=== PATIENT | female | born 2000 | race Caucasian/White ===

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

== ENCOUNTER 2024-02-01 10:20 | Outpatient (CLI) | payer OTHER, SELFPAY ==
--- NOTE | ~2024-02-01 | XR_ITS ---
EXAMINATION: XR chest 2V 02/01/2024 10:55 INDICATION: Shortness of breath PROCEDURE: 2 view chest COMPARISON: No prior studies for comparison. FINDINGS: The lungs are clear. The cardiomediastinal silhouette is within normal limits. There are no pleural effusions. There is no pneumothorax suspected. IMPRESSION: 1: NO ACUTE CARDIOPULMONARY DISEASE. Reviewed, dictated and finalized at location B.
[2024-02-01 10:56] LABS: Hematocrit 41.4 % (37.0-47.0); Mean Corpuscular HGB Conc 31.4 g/dl (32-36); Mean Corpuscular Volume 92.2 fl (80-100); Mean Platelet Volume 10.2 fl (7.4-10.4); Platelet Count Result 244 k/mm3 (150-375); Red Blood Count 4.49 M/mm3 (4.2-5.4); White Blood Count 4.2 K/mm3 (4.5-10.0)
[2024-02-01 11:13] LABS: Rheumatoid Factor < 12.0 IU/ML (<12)
[2024-02-01 11:19] LABS: Alanine Aminotransferase 12 U/L (6-35); Albumin Level 4.4 g/dL (3.5-5.1); Alkaline Phosphatase 39 U/L (38-126); Anion Gap 7 mmol/L (4-12); Aspartate Amino Transferase 22 U/L (14-36); Bilirubin,Total 0.6 mg/dL (0.2-1.3); Blood Urea Nitrogen 13 mg/dL (7-17); Calcium 9.6 mg/dL (8.4-10.2); Carbon Dioxide 28 mmol/L (22-30); Chloride 105 mmol/L (98-107); Estimated Glomerular Filt Rate > 60; Glucose 84 mg/dL (65-110); Potassium 4.1 mmol/L (3.4-5.0); Sodium 140 mmol/L (137-145)
[2024-02-02 08:23] LABS: ANA Cascade Screen NEGATIVE (NEGATIVE)
== END 2024-02-01 10:21 | disposition home or self-care (01) ==
PROVIDERS: PCP Family Medicine; Visit Provider Nurse Practitioner Adult Health
DX: L50.9 Urticaria, unspecified (principal); Z13.29 Encounter for screening for other suspected endocrine disorder; R06.02 Shortness of breath
CPT/HCPCS: 36415; 71046; 80053; 84443; 85027; 86038; 86225; 86235; 86364; 86430

== ENCOUNTER 2024-10-01 08:09 | Emergency (ER) | payer OTHER, SELFPAY ==
--- NOTE | 2024-10-01 08:18 | ED.URI ---
HPI - URI/Sore Throat General Chief Complaint: Upper Respiratory Infection Stated Complaint: Edilbertoess patient presents to the [facility] with complaints continued sore throat, ulcers to right tonsil, fevers, headaches, and fatigue that began several weeks ago. 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 Patient reports using Tylenol consistently. Denies cough, dizziness, shortness of breath, difficulty swallowing, nausea, vomiting, or diarrhea Related Data Home Medications ?Medication ?Instructions ?Recorded ?Confirmed ?Last Taken ?Type venlafaxine 150 mg 150 mg PO DAILY 02/01/24 02/01/24 Unknown History capsule,extended release 24 hr Allergies Allergy/AdvReac Type Severity Reaction Status Date / Time hydrocodone Allergy Intermediate Rash Verified 10/01/24 08:35 Review of Systems Constitutional: Constitutional: Reports as per HPI, Denies chills, Reports fatigue, Reports fever(s) and Denies weakness Eyes: Eyes: Reports no additional eye complaints ENT: Reports as per HPI, Denies vertigo, Denies dizziness, Reports nasal congestion and Reports sore throat Comments: ulcers right tonsil Cardiovascular: Cardiovascular: Reports no additional cardiovascular complaints Respiratory: Respiratory: Reports as per HPI, Denies chest congestion and Denies cough Gastrointestinal: Gastrointestinal: Reports no additional gastrointestinal complaints Genitourinary: Genitourinary: Reports no additional female genitourinary complaints Musculoskeletal: Musculoskeletal: Reports no additional musculoskeletal complaints Integumentary/Breasts: Skin/Breast: Reports as per HPI and Denies rash Neurologic: Reports as per HPI, Denies vertigo, Denies dizziness and Reports headache(s) Psychiatric: Psychiatric: Reports no additional psychiatric complaints Endocrine: Endocrine: Reports no additional endocrine complaints Hematologic/Lymphatic: Hematologic/Lymphatic: Reports no additional hematologic/lymphatic complaints Allergic/Immunologic: Allergic/Immunologic: Reports as per HPI Comments: seasonal allergies, nasal drainage PMFSH Past Medical History Medical History Anxiety Chronic constipation Shortness of breath Screening for thyroid disorder Hives Surgical History Surgical History History of skin graft ~2003 History of skin graft History of hernia repair Family History Family History Other Depression Diabetes mellitus Hypertension Social History Social History Smoking status: Unknown if ever smoked Second hand tobacco smoke exposure: Yes Alcohol intake: current Substance use: never Do You Feel Safe in your Home?: Yes Lack of Transportation: No Lack of Food: Never True Current Housing: I Have Housing Concerned About Future Housing: No Difficulty Paying Gas/Electric Bills: No Difficulty Paying for Meds: No Currently Unemployed: No Education: Associate Degree Difficulty w/ Childcare or Family Care: No Exam Const: General: ill appearing Orientation/consciousness: patient oriented x3 Limitations: no limitations Other: obviously fatigued HENMT: Head: normal to inspection Ears: external ears normal and TM's normal bilaterally Face/Nose/Sinus: Normal external nose present and Normal nares present Face and sinus: normal facial exam and sinuses nontender Mouth: Yes moist mucous membranes and Yes Abnormal oral and palatal mucosa present erythematous, edematous and ulceration (right tonsil) Throat: posterior oropharynx abnormal (moderate erythema and mild edema noted- no peritonsillar abscess noted. ) Neck: Neck: lymphadenopathy (bilateral anterior cervical) Chest: Chest palpation & inspection: normal inspection of the chest Resp: Effort & Inspection: normal respiratory effort Auscultation: clear to auscultation bilaterally Cardio: Rate: regular rate Rhythm: regular rhythm Heart sounds: no murmurs Skin: General skin exam: normal color Rashes: no rashes Wounds: no wounds Neuro: General: patient oriented x3 Speech: normal speech Gait exam (Neuro): Normal gait present Psych: Mental Status: mental status grossly normal Affect: normal affect Attitude: cooperative Course Course Level of Care: Express Care Visit MDM - URI/Sore Throat MDM Narrative Medical decision making narrative: strep testing completed in clinic- given length of symptoms, fevers, and exam will place on antibiotics. Discharge instructions reviewed with patient, as well as provided in writing per nursing staff. The instructions also include specific and strict return/GO TO THE ER as well as f/u information. All questions have been answered, and the patient deny any further questions with discharge and discharge plan. Differential Diagnosis Differential diagnosis: Likely upper respiratory infection, otitis media, sinusitis, viral infection, influenza and pharyngitis Medical Records Attestation: I reviewed the patient's medical records. Lab Data Attestation: I reviewed the patient's lab results. Discharge Plan Discharge Clinical Impression: Acute bacterial tonsillitis Patient Disposition: Home Condition: Stable Instructions: Antibiotic Form, Strep Throat (ED) Additional Instructions: After 24 hours on antibiotics throw tooth brush away and start using a new one. Do not share drinks. Take Motrin alternating with Tylenol for pain and fever alternating every 4 hours. Increase fluids, avoid caffeine. Follow up with Primary provider if not getting better this week Patient Language: Faroese Prescriptions: New amoxicillin 875 mg tablet 875 mg PO Q12H Qty: 20 0RF methylprednisolone [Medrol (Shahab)] 4 mg tablets,dose pack See Rx Instructions .ROUTE .COMPLEX Qty: 21 0RF Rx Instructions: for 6 days No Action venlafaxine 150 mg capsule,extended release 24hr 150 mg PO DAILY Airsupra 90-80 mcg/actuation HFA aerosol inhaler 2 inh inhalation TID PRN (Reason: shortness of breath) Qty: 5.9 3RF Rx Instructions: as a single dose; may repeat up to 6 doses per day (12 inhalations) epinephrine [EpiPen] 0.3 mg/0.3 mL auto-injector 0.3 mg IM Q10M PRN (Reason: hypersensitivity reaction) Qty: 2 1RF Rx Instructions: for 2 doses Linzess 72 mcg capsule 72 mcg PO DAILY Qty: 30 3RF Follow-up/Referrals: Lorraine Davey APRN [Primary Care Provider] - Stand Alone Forms: Work/School Release IP Time of Disposition: 08:44
[2024-10-01 08:19] VITALS: BP 122/80; PULSE 64; RESP 16; TEMP 36.9; O2SAT 100
[2024-10-01 08:43] LABS: EDSTREPNEGPOS1 Negative (Negative)
== END 2024-10-01 08:52 | disposition home or self-care (01) ==
PROVIDERS: Emergency Provider Nurse Practitioner Family; PCP Nurse Practitioner Adult Health
DX: J03.90 Acute tonsillitis, unspecified (principal); F41.9 Anxiety disorder, unspecified
CPT/HCPCS: 87081; 87880; 99213; G0463

== ENCOUNTER 2025-02-22 09:46 | Outpatient (CLI) | payer BC, SELFPAY ==
--- OUTSIDE RECORDS SUMMARY | 2025-02-22 10:25 | XMS_ITS | Encounter Summary ---
Author Organization [facility] Address [address] [place] [address] Care Team Providers Care Shaker Operator Name Role Phone Unavailable Primary Care Provider Unavailabl e Encounter Details Date Type Department Care Team (Late st Contact Info) Description 03/23/2003 Outpatient Historical [facility] [id number] [facility] [address] [place] [phone] Tc Stewart MD [address] [facility] [address] [place] [address] Social History Tobacco Use Types Packs/Day Years Used Date Smoking Tobacco: Never Assessed Comments Unknown Sex and Gender Information Value Date Recorded Sex Assigned at Not on file Legal Sex Female 2:39 AM COMPUTER COMPOSITOR Gender Identity Not on file Sexual Orientation Not on file documented as of this encounter Plan of Treatment Not on file documented as of this encounter Visit Diagnoses Not on filedocumented in this encounter
--- OUTSIDE RECORDS SUMMARY | 2025-02-22 10:25 | XMS_ITS | Clinical Summary ---
Author Organization [facility] Address [address] [place] [address] Phone Care Team Providers Care Senior Windows Administrator Name Role Phone Unavailable Primary Care Provider Unavailabl e Encounters Date Type Department Care Team Description 12/28/2024 [facility] [address] [place] [address] Mary Simental APRN, CNP 12/28/2024 Travel 11/29/2024 Lab [facility] [address] [place] [address] Mary Simental APRN SENIOR COST ANALYST 11/29/2024 Travel from Last 3 Months Social History Tobacco Use Types Packs/Day Years Used Date Smoking Tobacco: Never Assessed Comments Unknown Sex and Gender Information Value Date Recorded Sex Assigned at Not on file Legal Sex Female 11:41 AM CDT Gender Identity Not on file Sexual Orientation Not on file Plan of Treatment Health Maintenance Due Date Last Done Comments Meningococcal B Immunization (1 of 2 - Standard) 2017 Pap Smear 2022 04/15/2019 SARS-COV-2 Immunization ( season) 2024 11/21/2020, 11/01/2020, 04/12/2020 Respiratory Syncytial Virus (RSV) Immunization (Adult) (1 - 1-dose 75+ series) 2076 Pneumococcal Immunization Combined Aged Out 12/25/2002, 06/09/2002, 03/31/2002, Additional history exists No longer eligible based on patient's age to complete this topic Human Papillomavirus (HPV) Immunization Completed 04/12/2014, 06/06/2013, 02/01/2013, Additional history exists Meningococcal Immunization (ACWY) Completed 11/16/2018, 11/30/2012 Hepatitis C Virus (HCV) Screening Completed 09/09/2021 Hepatitis B Immunization Completed 024, 12/25/2002, 03/31/2002, Additional history exists TdaP Immunization Completed 08/14/2023, , 11/30/2012 Influenza Immunization Completed 5, 02/08/2024, 01/28/2023, Additional history exists Rotavirus Immunization Aged Out No lo nger eligible based on patient's age to complete this topic Procedures Procedure Name Priority Date/Time Associated Diagnosis Comments QUANTIFERON-TB GOLD PLUS Routine 12/28/2024 8:15 AM CDT QUANTIFERON-TB GOLD PLUS Routine 11/29/2024 12:15 PM CDT HERPES ZOSTER (VARICELLA) IGG Routine 11/29/2024 12:15 PM CDT RUBEOLA (MEASLES) IGG Routine 11/29/2024 12:15 PM CDT RUBELLA IMMUNITY IGG Routine 11/29/2024 12:15 PM CDT MUMPS IGG Routine 11/29/2024 12:15 PM CDT MMRV PANEL Routine 11/29/2024 12:15 PM CDT from Last 3 Months Results * (ABNORMAL) QUANTIFERON-TB GOLD PLUS (12/28/2024 8:15 AM CDT) Only the most recent of2 resultswithin the time period is included. NIL CONTROL 0.05 <8.01 IU/mL 12/31/2024 10:49 AM CDT [facility] TB ANTIGEN 1 0.44(H) <0.35 IU/mL 12/31/2024 10:49 AM CDT [facility] TB ANTIGEN 2 0.55(H) <0.35 IU/mL 12/31/2024 10:49 AM CDT [facility] MITOGEN CONTROL 9.95 >0.49 IU/mL 01/01/20 10:49 AM CDT [facility] INTEPRETATION TB POSITIVE( A) NEGATIVE, NEGATIVE (TB antigen response less than 25% of internal negative control value) 12/31/2024 10:49 AM CDT [facility] Comment:Sample demonstrated an immune response to Mycobacterium tuberculosis antigens. 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 Blood Venipuncture / Unknown 12/28/2024 8:15 AM CDT 12/28/2024 8:13 AM CDT Narrative [facility] - 12/31/2024 10:49 AM CDT A POSITIVE QUANTIFERON-TB GOLD PLUS RESULT SHOULD NOT BE THE SOLE OR DEFINITIVE BASIS FOR DETERMINING INFECTION WITH M.TUBERCULOSIS. Diagnosing or excluding tuberculosis disease, and assessing the probability of LTBI, requires a combination of epidemiological, historical, medical and diagnostic findings (e.g., acid fast bacilli (AFB) smear and culture, chest xray) that should be taken into account when interpreting QFT-Plus results. Furthermore, the magnitude of the measured gamma interferon level cannot be correlated to stage or degree of infection, level of immune responsiveness, or likelihood for progression to active disease. The Nil control adjusts for background (e.g., elevated levels of circulating gamma interferon or presence of heterophile antibodies). The Mitogen control serves as an internal positive control and verifies each specimen tested can produce a gamma interferon response. Low mitogen may occur with insufficient lymphocytes, reduced lymphocyte activity due to improper specimen handling, filling/mixing of the mitogen tube, or inability of the patient's lymphocytes to generate gamma interferon. Infection with other Mycobacteria, including M. kansasii, M. szulgai, and M. marinum, may cause false positive results. A negative QuantiFERON-TB Gold Plus result does not preclude the possibility of M. tuberculosis infection or tuberculosis disease: false negative results can be due to incorrect blood sample collection/ improper handling of the specimen, stage of infection (e.g., specimen obtained prior to the development of cellular immune response), co-morbid conditions which affect immune function, or other individual immunological factors. The minimum number of lymphocytes required for a reliable test has not been established and may also be variable. Diagnostic testing for Mycobacterium tuberculosis using Interferon Gamma Release Assays should follow applicable published guidelines, including when testing in populations such as children, women, and HIV-infected or otherwise immunocompromised individuals. https://www.cdc.gov/tb/publications/guidelines/testing.htm Mary Simental APRN, SENIOR COST ANALYST IMMUNOLOGY ORDERABL ES Final Result Performing Organization Address [facility] de Phone Number [facility] [address] [place] [address], [place] * MUMPS IGG (11/29/2024 12:15 PM CDT) Mumps Ab IgG 1.6 >=1.1 AI 11/29/2024 9:08 PM CDT [facility] Blood No Phlebotomy Charged / Unknown 11/29/2024 12:15 PM CDT 11/29/2024 12:58 PM CDT Narrative [facility] - 11/29/2024 9:08 PM CDT <= 0.8 Negative. No detectable Mumps IgG antibody. 0.9 - 1.0 Equivocal >=1.1 Positive Antibody testing was performed by multiplex flow immunoassay on the [employer] platform. Mary Simental APRN, PATI IMMUNOLOGY ORDERABL ES Final Result Performing Organization Address [facility] de Phone Number [facility] [address] [place] [address], [place] * (ABNORMAL) HERPES ZOSTER (VARICELLA) IGG (11/29/2024 12:15 PM CDT) VARICELLA ZOSTER IGG 0.8(L) >=1.1 AI 11/29/2024 9:08 PM CDT [facility] Blood No Phlebotomy Charged / Unknown 11/29/2024 12:15 PM CDT 11/29/2024 12:58 PM CDT Narrative [facility] - 11/29/2024 9:08 PM CDT <= 0.8 Negative. No detectable VZV IgG antibody. 0.9 - 1.0 Equivocal >=1.1 Positive Antibody testing was performed by multiplex flow immunoassay on the [employer] platform. us Mary L Behrends ENGINE REPAIRER SERVICE, SENIOR COST ANALYST IMMUNOLOGY ORDERABL ES Final Result Performing Organization Address [facility] Co de Phone Number [facility] [address] [place] [address], [place] * RUBEOLA (MEASLES) IGG (11/29/2024 12:15 PM CDT) MEASLES AB IGG 3.8 >=1.1 AI 11/29/2024 9:08 PM CDT [facility] Blood No Phlebotomy Charged / Unknown 11/29/2024 12:15 PM CDT 11/29/2024 12:58 PM CDT Narrative [facility] - 11/29/2024 9:08 PM CDT <= 0.8 Negative. No detectable Measles IgG antibody. 0.9 - 1.0 Equivocal >=1.1 Positive Antibody testing was performed by multiplex flow immunoassay on the [employer] platform. us Mary L Behrends ENGINE REPAIRER SERVICE, SENIOR COST ANALYST IMMUNOLOGY ORDERABL ES Final Result Performing Organization Address [facility] [address] [facility] Co de Phone Number [facility] [address] [place] [address], [place] * RUBELLA IMMUNITY IGG (11/29/2024 12:15 PM CDT) RUBELLA IMMUNITY Immune Immune, Invalid 11/29/2024 9:08 PM CDT [facility] RUBELLA IGG QUANT 2.90 >=1.0 AI AI 11/29/2024 9:08 PM CDT [facility] Blood No Phlebotomy Charged / Unknown 11/29/2024 12:15 PM CDT 11/29/2024 12:58 PM CDT Narrative [facility] - 11/29/2024 9:08 PM CDT Antibody testing was performed by multiplex flow immunoassay on the [employer] platform. us Mary L Behrends ENGINE REPAIRER SERVICE, SENIOR COST ANALYST CHEMISTRY ORDERABLE S Final Result [facility] [address] [place] [address], [place] from Last 3 Months
--- OUTSIDE RECORDS SUMMARY | 2025-02-22 10:25 | XMS_ITS | Encounter Summary ---
Author Organization [facility] Address [address] [place] [address] Care Team Providers Care System Sales Consultant Name Role Phone Unavailable Primary Care Provider Unavailabl e Encounter Details Date Type Department Care Team (Late st Contact Info) Description 03/21/2003 Outpatient Historical [facility] [address] [place] [phone] Waldo Proctor MD Social History Tobacco Use Types Packs/Day Years Used Date Smoking Tobacco: Never Assessed Comments Unknown Sex and Gender Information Value Date Recorded Sex Assigned at Not on file Legal Sex Female 2:39 AM CAMPUS WELLNESS COORDINATOR Gender Identity Not on file Sexual Orientation Not on file documented as of this encounter Plan of Treatment Not on file documented as of this encounter Visit Diagnoses Not on filedocumented in this encounter
--- OUTSIDE RECORDS SUMMARY | 2025-02-22 10:25 | XMS_ITS | Encounter Summary ---
Author Organization [facility] Address [address] [place] [address] Care Team Providers Care Phlebotomy Support Tech Name Role Phone Unavailable Primary Care Provider Unavailabl e Encounter Details Date Type Department Care Team (Late st Contact Info) Description 04/03/2003 Outpatient Historical [facility] Burn [address] [facility] [address] [place] [phone] Lisandro Jarvis MD [address] [facility] [address] [phone] Social History Tobacco Use Types Packs/Day Years Used Date Smoking Tobacco: Never Assessed Comments Unknown Sex and Gender Information Value Date Recorded Sex Assigned at Not on file Legal Sex Female 2:39 AM HR PAYROLL COORDINATOR Gender Identity Not on file Sexual Orientation Not on file documented as of this encounter Plan of Treatment Not on file documented as of this encounter Visit Diagnoses Not on filedocumented in this encounter
--- OUTSIDE RECORDS SUMMARY | 2025-02-22 10:25 | XMS_ITS | Encounter Summary ---
Author Organization [facility] Address [address] [place] [address] Phone Care Team Providers Care Curriculum And Instruction Specialist Name Role Phone Unavailable Primary Care Provider Unavailabl e Encounter Details Date Type Department Care Team (Late st Contact Info) Description 11/29/2024 Lab Requisition [facility] Laboratory Services [address] [place] [address] Mary Simental, SAP PAYROLL CONSULTANT, RESULTS TECHNICIAN [address] [place] [address] Social History Tobacco Use Types Packs/Day Years Used Date Smoking Tobacco: Never Assessed Comments Unknown Sex and Gender Information Value Date Recorded Sex Assigned at Not on file Legal Sex Female 11:41 AM CDT Gender Identity Not on file Sexual Orientation Not on file documented as of this encounter Plan of Treatment Not on file documented as of this encounter Procedures Procedure Name Priority Date/Time Associated Diagnosis Comments QUANTIFERON-TB GOLD PLUS Routine 11/29/2024 12:15 PM CDT MMRV PANEL Routine 11/29/2024 12:15 PM CDT MUMPS IGG Routine 11/29/2024 12:15 PM CDT HERPES ZOSTER (VARICELLA) IGG Routine 11/29/2024 12:15 PM CDT RUBEOLA (MEASLES) IGG Routine 11/29/2024 12:15 PM CDT RUBELLA IMMUNITY IGG Routine 11/29/2024 12:15 PM CDT documented in this encounter Results * (ABNORMAL) QUANTIFERON-TB GOLD PLUS (11/29/2024 12:15 PM CDT) NIL CONTROL 0.02 <8.01 IU/mL 12/01/2024 1:58 PM CDT [facility] TB ANTIGEN 1 0.41(H) <0.35 IU/mL 12/01/2024 1:58 PM CDT [facility] TB ANTIGEN 2 0.47(H) <0.35 IU/mL 12/01/2024 1:58 PM CDT [facility] MITOGEN CONTROL 9.98 >0.49 IU/mL 12/02/19 1:58 PM CDT [facility] INTEPRETATION TB POSITIVE( A) NEGATIVE, NEGATIVE (TB antigen response less than 25% of internal negative control value) 12/01/2024 1:58 PM CDT [facility] Comment:Sample demonstrated an immune response to Mycobacterium tuberculosis antigens. 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 Blood No Phlebotomy Charged / Unknown 11/29/2024 12:15 PM CDT 11/29/2024 12:58 PM CDT Narrative [facility] - 12/01/2024 1:58 PM CDT A POSITIVE QUANTIFERON-TB GOLD PLUS RESULT [...] HIV-infected or otherwise immunocompromised individuals. https://www.cdc.gov/tb/publications/guidelines/testing.htm Mary José Miguel Simental SAP PAYROLL CONSULTANT, RESULTS TECHNICIAN IMMUNOLOGY ORDERABL ES Final Result Performing Organization Address [facility] Co de Phone Number [facility] [address] [place] [address], [place] * (ABNORMAL) HERPES ZOSTER (VARICELLA) IGG (11/29/2024 12:15 PM CDT) VARICELLA ZOSTER IGG 0.8(L) >=1.1 AI 11/29/2024 9:08 PM CDT [facility] Blood No Phlebotomy Charged / Unknown 11/29/2024 12:15 PM CDT 11/29/2024 12:58 PM CDT Narrative [facility] - 11/29/2024 9:08 PM CDT <= 0.8 Negative. No detectable VZV IgG antibody. 0.9 - 1.0 Equivocal >=1.1 Positive Antibody testing was performed by multiplex flow immunoassay on the [employer] platform. Mary José Miguel Behrends SAP PAYROLL CONSULTANT, RESULTS TECHNICIAN IMMUNOLOGY ORDERABL ES Final Result Performing Organization Address [facility] Co de Phone Number [facility] [address] [place] [address], [place] * RUBEOLA (MEASLES) IGG (11/29/2024 12:15 PM CDT) MEASLES AB IGG 3.8 >=1.1 AI 11/29/2024 9:08 PM CDT [facility] Blood No Phlebotomy Charged / Unknown 11/29/2024 12:15 PM CDT 11/29/2024 12:58 PM CDT Narrative [facility] - 11/29/2024 9:08 PM CDT <= 0.8 Negative. No detectable Measles IgG antibody. 0.9 - 1.0 Equivocal >=1.1 Positive Antibody testing was performed by multiplex flow immunoassay on the [employer] platform. us Mary L Behrends SAP PAYROLL CONSULTANT, RESULTS TECHNICIAN IMMUNOLOGY ORDERABL ES Final Result Performing Organization Address [facility] Co de Phone Number [facility] [address] [place] [address], [place] * RUBELLA IMMUNITY IGG (11/29/2024 12:15 PM CDT) RUBELLA IMMUNITY Immune Immune, Invalid 11/29/2024 9:08 PM CDT [facility] RUBELLA IGG QUANT 2.90 >=1.0 AI AI 11/29/2024 9:08 PM CDT [facility] Blood No Phlebotomy Charged / Unknown 11/29/2024 12:15 PM CDT 11/29/2024 12:58 PM CDT Narrative [facility] - 11/29/2024 9:08 PM CDT Antibody testing was performed by multiplex flow immunoassay on the [employer] platform. us Mary L Behrends SAP PAYROLL CONSULTANT, RESULTS TECHNICIAN CHEMISTRY ORDERABLE S Final Result Performing Organization Address [facility] Co de Phone Number [facility] [address] [place] [address], [place] * MUMPS IGG (11/29/2024 12:15 PM CDT) Mumps Ab IgG 1.6 >=1.1 AI 11/29/2024 9:08 PM CDT [facility] Blood No Phlebotomy Charged / Unknown 11/29/2024 12:15 PM CDT 11/29/2024 12:58 PM CDT Narrative [facility] - 11/29/2024 9:08 PM CDT <= 0.8 Negative. No detectable Mumps IgG antibody. 0.9 - 1.0 Equivocal >=1.1 Positive Antibody testing was performed by multiplex flow immunoassay on the [employer] platform. us Mary Simental SAP PAYROLL CONSULTANT, RESULTS TECHNICIAN IMMUNOLOGY ORDERABL ES Final Result [facility] [address] [place] [address], [place] documented in this encounter Visit Diagnoses Not on filedocumented in this encounter
--- OUTSIDE RECORDS SUMMARY | 2025-02-22 10:25 | XMS_ITS | Encounter Summary ---
Author Organization [facility] Address [address] [place] [address] Care Team Providers Care Papier Mache Molder Name Role Phone Unavailable Primary Care Provider Unavailabl e Encounter Details Date Type Department Care Team (Late st Contact Info) Description 03/21/2003 Outpatient Historical [facility] Department of Peds at [facility] [address] [facility] 

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
--- OUTSIDE RECORDS SUMMARY | 2025-02-22 10:25 | XMS_ITS | Encounter Summary ---
Author Organization [facility] Address [address] [place] [address] Care Team Providers Care Alodize Machine Operator Name Role Phone Unavailable Primary Care Provider Unavailabl e Encounter Details Date Type Department Care Team (Late st Contact Info) Description 05/18/2003 Outpatient Historical [facility] [id number] [facility] [address] [place] [phone] Lisandro Jarvis MD [address] [facility] [address] [place] [phone] Social History Tobacco Use Types Packs/Day Years Used Date Smoking Tobacco: Never Assessed Comments Unknown Sex and Gender Information Value Date Recorded Sex Assigned at Not on file Legal Sex Female 2:39 AM SUPERVISOR URANIUM PROCESSING Gender Identity Not on file Sexual Orientation Not on file documented as of this encounter Plan of Treatment Not on file documented as of this encounter Visit Diagnoses Not on filedocumented in this encounter
--- OUTSIDE RECORDS SUMMARY | 2025-02-22 10:25 | XMS_ITS | Encounter Summary ---
Author Organization [facility] Address [address] [place] [address] Care Team Providers Care Engineer Of System Development Name Role Phone Unavailable Primary Care Provider Unavailabl e Encounter Details Date Type Department Care Team (Late st Contact Info) Description 03/20/2003 Outpatient Historical [facility] [address] [place] [phone] Waldo Proctor MD Social History Tobacco Use Types Packs/Day Years Used Date Smoking Tobacco: Never Assessed Comments Unknown Sex and Gender Information Value Date Recorded Sex Assigned at Not on file Legal Sex Female 2:39 AM PREPRINT ANALYST Gender Identity Not on file Sexual Orientation Not on file documented as of this encounter Plan of Treatment Not on file documented as of this encounter Visit Diagnoses Not on filedocumented in this encounter
--- OUTSIDE RECORDS SUMMARY | 2025-02-22 10:25 | XMS_ITS | Encounter Summary ---
Author Organization [facility] Address [address] [place] [address] Care Team Providers Care Stitch Separator Name Role Phone Unavailable Primary Care Provider Unavailabl e Encounter Details Date Type Department Care Team (Late st Contact Info) Description 03/22/2003 Outpatient Historical [facility] [address] [facility] [address] [place] [phone] Lisandro Jarvis MD [address] [facility] [address] [facility] [place] [address] Social History Tobacco Use Types Packs/Day Years Used Date Smoking Tobacco: Never Assessed Comments Unknown Sex and Gender Information Value Date Recorded Sex Assigned at Not on file Legal Sex Female 2:39 AM VP TALENT MANAGEMENT Gender Identity Not on file Sexual Orientation Not on file documented as of this encounter Plan of Treatment Not on file documented as of this encounter Visit Diagnoses Not on filedocumented in this encounter
--- OUTSIDE RECORDS SUMMARY | 2025-02-22 10:25 | XMS_ITS | Encounter Summary ---
Author Organization [facility] Address [address] [place] [address] Care Team Providers Care Freezer Machine Operator Name Role Phone Unavailable Primary Care Provider Unavailabl e Encounter Details Date Type Department Care Team (Late st Contact Info) Description 07/23/2006 Outpatient Historical [facility] [address] [facility] [address] [place] [phone] Lisandro Jarvis MD [address] [facility] [address] [place] [phone] Social History Tobacco Use Types Packs/Day Years Used Date Smoking Tobacco: Never Assessed Comments Unknown Sex and Gender Information Value Date Recorded Sex Assigned at Not on file Legal Sex Female 2:39 AM NURSES' AIDE Gender Identity Not on file Sexual Orientation Not on file documented as of this encounter Plan of Treatment Not on file documented as of this encounter Visit Diagnoses Not on filedocumented in this encounter
--- OUTSIDE RECORDS SUMMARY | 2025-02-22 10:25 | XMS_ITS | Clinical Summary ---
Author Organization [facility] Address [address] [place] [address] Care Team Providers Care Salvage Engineering Technician Name Role Phone Eduarda Hurst MD Primary Care Provider Source Comments [facility],non-owned Affiliates and Associated Physician Practices is amultiple site organization consisting of ambulatory clinics and hospital sitesin [place], [place], [place] and [place]. This disclosure is being madepursuant to the Care Everywhere program and may not contain all information available regarding this patient. Last updated 17.[facility] too.me Social History Tobacco Use Types Packs/Day Years Used Date Smoking Tobacco: Never Assessed Comments Unknown Sex and Gender Information Value Date Recorded Sex Assigned at Not on file Legal Sex Female 1:54 PM CDT Gender Identity Not on file Sexual Orientation Not on file Plan of Treatment Health Maintenance Due Date Last Done Comments HIV SCREENING 2016 HPV VACCINE (1 - 3-dose series) 2016 CHLAMYDIA/GONORRHEA SCREENING 2017 MENINGOCOCCAL (Group B) VACCINE SHARED DECISION-MAKING (1 of 2 - Standard) 2017 HEPATITIS C SCREENING 11/24/2019 DTAP/TDAP/TD VACCINES (1 - Tdap) 2020 HEPATITIS B VACCINE (1 of 3 - 19+ 3-dose series) 2020 PAP SMEAR 2022 DEPRESSION SCREENING 04/12/2024 COVID-19 VACCINE (3 - 2024- season) 2024 11/21/2020, 11/01/2020 INFLUENZA VACCINE (#1) 2024 , 02/01/2019, 02/06/2018, Additional history exists ZOSTER VACCINE (1 of 2) 11/29/2051 HIB VACCINE Aged Out No longer eligi ble based on patient's age to complete this topic MENINGOCOCCAL GROUPS A/C/Y/W VACCINE Aged Out No longer eligible based on patient's age to complete this topic PNEUMOCOCCAL VACCINE Aged Out No long er eligible based on patient's age to complete this topic Insurance * Guarantor: E-SCREEN,SOIL Account Type Relation to Patient Date of Phone Billing Address Company Employer [employer] [address] Care Teams Salvage Engineering Technician Relationship Specialty Start Date End Date Eduarda Hurst MD [address] [place] [id number] PCP - General Pediatrics 06/23/17
--- OUTSIDE RECORDS SUMMARY | 2025-02-22 10:25 | XMS_ITS | Encounter Summary ---
Author Organization [facility] Address [address] [place] [address] Care Team Providers Care Head Men'S Golf Coach Name Role Phone Unavailable Primary Care Provider Unavailabl e Encounter Details Date Type Department Care Team (Late st Contact Info) Description 03/26/2003 Outpatient Historical [facility] [address] [facility] [address] [place] [phone] Tc Stewart MD [address] [facility] [address] [place] [address] Social History Tobacco Use Types Packs/Day Years Used Date Smoking Tobacco: Never Assessed Comments Unknown Sex and Gender Information Value Date Recorded Sex Assigned at Not on file Legal Sex Female 2:39 AM TESTER PRINTED CIRCUIT BOARDS Gender Identity Not on file Sexual Orientation Not on file documented as of this encounter Plan of Treatment Not on file documented as of this encounter Visit Diagnoses Not on filedocumented in this encounter
--- OUTSIDE RECORDS SUMMARY | 2025-02-22 10:25 | XMS_ITS | Encounter Summary ---
Author Organization [facility] Address [address] [place] [address] Phone Care Team Providers Care Customer Success Representative Name Role Phone Unavailable Primary Care Provider Unavailabl e Encounter Details Date Type Department Care Team (Late st Contact Info) Description 12/28/2024 Lab Requisition [facility] Laboratory Services [address] [place] [address] Mary Simental, LEAD SECURITY OFFICER, IRRIGATION SUPERVISOR [address] [place] [address] Social History Tobacco Use Types [...] GOLD PLUS Routine 12/28/2024 8:15 AM CDT documented in this encounter Results * (ABNORMAL) QUANTIFERON-TB GOLD PLUS (12/28/2024 8:15 AM CDT) NIL CONTROL 0.05 <8.01 IU/mL 12/31/2024 10:49 AM CDT [facility] TB ANTIGEN 1 0.44(H) <0.35 IU/mL 12/31/2024 10:49 AM CDT [facility] TB ANTIGEN 2 0.55(H) <0.35 IU/mL 12/31/2024 10:49 AM CDT [facility] MITOGEN CONTROL 9.95 >0.49 IU/mL 09/21/20 25 10:49 AM CDT [facility] INTEPRETATION TB POSITIVE( A) NEGATIVE, NEGATIVE (TB antigen response less than 25% of internal negative control value) 12/31/2024 10:49 AM CDT [facility] Comment:Sample demonstrated an immune response to Mycobacterium tuberculosis antigens. 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 Blood Venipuncture / Unknown 12/28/2024 8:15 AM CDT 12/28/2024 8:13 AM CDT Narrative [facility] - 12/31/2024 10:49 AM CDT A POSITIVE [...] and HIV-infected or otherwise immunocompromised individuals. https://www.cdc.gov/tb/publications/guidelines/testing.htm us Mary Simental APRN, PATI IMMUNOLOGY ORDERABL ES Final Result [facility] [address] [place] [address], [place] documented in this encounter Visit Diagnoses Not on filedocumented in this encounter
--- OUTSIDE RECORDS SUMMARY | 2025-02-22 10:25 | XMS_ITS | Clinical Summary ---
Author Organization [facility] Address [address] [place]ahn: Epic Prelude ADT [place] [address] Care Team Providers Care Social Media Analyst Name Role Phone Unavailable Primary Care Provider Unavailabl e Social History Tobacco Use Types Packs/Day Years Used Date Smoking Tobacco: Never Assessed Comments Unknown Sex and Gender Information Value Date Recorded Sex Assigned at Not on file Legal Sex Female 2:39 AM VP CORPORATE PARTNERSHIPS Gender Identity Not on file Sexual Orientation Not on file Plan of Treatment Health Maintenance Due Date Last Done Comments CHLAMYDIA SCREENING (ANNUAL) 11-24 YEARS 2012 HPV VACCINES (1 - 3-dose series) 2016 DTAP/TDAP/TD VACCINES (1 - Tdap) 2020 HEPATITIS B VACCINES (1 of 3 - 19+ 3-dose series) 11/10 CERVICAL CANCER SCREENING 2022 HPV/Cotest (21-29) 2022 PAP SMEAR 2022 INFLUENZA VACCINE (#1) 2024
--- OUTSIDE RECORDS SUMMARY | 2025-02-22 10:25 | XMS_ITS | Encounter Summary ---
Author Organization [facility] Address [address] [place] [address] Care Team Providers Care Dry Cleaning Manager Name Role Phone Unavailable Primary Care Provider Unavailabl e Encounter Details Date Type Department Care Team (Late st Contact Info) Description 09/07/2003 Outpatient Historical [facility] [address] [facility] [address] [place] [phone] Lisandro Jarvis MD [address] [facility] [address] [place] [phone] Social History Tobacco Use Types Packs/Day Years Used Date Smoking Tobacco: Never Assessed Comments Unknown Sex and Gender Information Value Date Recorded Sex Assigned at Not on file Legal Sex Female 2:39 AM HOSPITAL MEDICAL BILLER Gender Identity Not on file Sexual Orientation Not on file documented as of this encounter Plan of Treatment Not on file documented as of this encounter Visit Diagnoses Not on filedocumented in this encounter
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
--- OUTSIDE RECORDS SUMMARY | 2025-02-22 10:25 | XMS_ITS | Encounter Summary ---
Author Organization [facility] Address [address] [place] [address] Care Team Providers Care Barrel Cooper Name Role Phone Unavailable Primary Care Provider Unavailabl e Encounter Details Date Type Department Care Team (Late st Contact Info) Description 04/17/2003 Outpatient Historical [facility] [address] [facility] [address] [place] [phone] Lisandro Jarvis MD [address] [facility] [address] [place] [phone] Social History Tobacco Use Types Packs/Day Years Used Date Smoking Tobacco: Never Assessed Comments Unknown Sex and Gender Information Value Date Recorded Sex Assigned at Not on file Legal Sex Female 2:39 AM AUDIOPROSTHOLOGIST Gender Identity Not on file Sexual Orientation Not on file documented as of this encounter Plan of Treatment Not on file documented as of this encounter Visit Diagnoses Not on filedocumented in this encounter
--- OUTSIDE RECORDS SUMMARY | 2025-02-22 10:25 | XMS_ITS | Encounter Summary ---
Author Organization [facility] Address [address] [place] [address] Care Team Providers Care Pulp Screen Operator Name Role Phone Unavailable Primary Care Provider Unavailabl e Encounter Details Date Type Department Care Team (Late st Contact Info) Description 03/21/2003 Outpatient Historical [facility] [address] [id number] [facility] [address] [place] [phone] Tc Stewart MD [address] [facility] [address] [place] [id number] Social History Tobacco Use Types Packs/Day Years Used Date Smoking Tobacco: Never Assessed Comments Unknown Sex and Gender Information Value Date Recorded Sex Assigned at Not on file Legal Sex Female 2:39 AM ONCOLOGY RADIATION PHYSICIAN Gender Identity Not on file Sexual Orientation Not on file documented as of this encounter Plan of Treatment Not on file documented as of this encounter Visit Diagnoses Not on filedocumented in this encounter
[2025-02-22 10:26] LABS: Hematocrit 41.5 % (37.0-47.0); Hemoglobin 13.2 g/dL (12.0-15.0); Immature Granulocyte Percent A 0.7 % (0-0.5); Lymphocytes Absolute Auto 1.61 K/mm3 (0.9-3.2); Mean Corpuscular HGB Conc 31.8 g/dl (32-36); Mean Corpuscular Hemoglobin 30.5 pg (26-34); Mean Corpuscular Volume 95.8 fl (80-100); Nucleated Red Blood Cells Absolute Auto 0.000 K/mm3 (0.0-0.012); Nucleated Red Blood Cells Perc 0.0 % (0.0-0.2); Platelet Count Result 268 k/mm3 (150-375); Red Blood Count 4.33 M/mm3 (4.2-5.4); White Blood Count 5.8 K/mm3 (4.5-10.0)
[2025-02-22 10:47] LABS: Iron 42 ug/dL (37-170)
[2025-02-22 10:50] LABS: Alanine Aminotransferase 15 U/L (6-35); Albumin Level 4.6 g/dL (3.5-5.1); Alkaline Phosphatase 43 U/L (38-126); Anion Gap 7 mmol/L (4-12); Aspartate Amino Transferase 25 U/L (14-36); Bilirubin,Total 0.4 mg/dL (0.2-1.3); Blood Urea Nitrogen 18 mg/dL (7-17); Calcium 9.4 mg/dL (8.4-10.2); Carbon Dioxide 24 mmol/L (22-30); Chloride 107 mmol/L (98-107); Cholesterol 162 mg/dL (0-200); Estimated Glomerular Filt Rate > 60; Glucose 82 mg/dL (65-110); HDL Direct 63 mg/dL; Magnesium 2.1 mg/dL (1.6-2.3); Potassium 4.6 mmol/L (3.4-5.0); Sodium 138 mmol/L (137-145); Total Protein 7.3 g/dL (6.3-8.2); Triglycerides 60 mg/dL (<150)
[2025-02-22 10:57] LABS: Percent Iron Saturation 13 % (20-50)
[2025-02-22 11:11] LABS: Free T4 Free Thyroxine 1.25 ng/dL (0.78-2.19)
[2025-02-22 11:27] LABS: Thyroid Stimulating Hormone 1.600 uIU/mL (0.465-4.680)
[2025-02-22 12:02] LABS: Vitamin B12 435.0 pg/mL (239-931)
== END 2025-02-22 09:47 | disposition home or self-care (01) ==
LOC: ANHLAB 09:47
PROVIDERS: PCP Family Medicine; Visit Provider Nurse Practitioner Adult Health
DX: F41.9 Anxiety disorder, unspecified (principal); R79.89 Other specified abnormal findings of blood chemistry; L65.9 Nonscarring hair loss, unspecified; R53.83 Other fatigue
CPT/HCPCS: 36415; 80053; 80061; 82306; 82607; 82746; 83540; 83550; 83735; 84439; 84443; 85025; 86376